=== PATIENT | male | born 1980 | race Two or more races ===

== ENCOUNTER 2023-10-17 17:48 | Emergency (ER) | payer OTHER ==
[~2023-10-17] VITALS: Ht 172.7 cm; Wt 100.0 kg
[2023-10-17 18:25] VITALS: PULSE 71; RESP 18; TEMP 98; O2SAT 98
[2023-10-17] MEDS: MORPHINE SULFATE 4 MG/ML SYR/VIAL IV ONE ×2 (18:37→21:03)
[2023-10-17] MEDS: SODIUM CHLORIDE 0.9% 1,000 ML IV ONE ×2 (18:37→20:26)
[2023-10-17] MEDS: KETOROLAC TROMETH 30 MG/ML 1ML VIAL IV ONE (18:38)
[2023-10-17] MEDS: ONDANSETRON HCL 4 MG/2 ML VIAL IV ONE (18:38)
[2023-10-17] MEDS ORDERED: IBUP-1456 PO (18:39)
[2023-10-17] MEDS ORDERED: ACET-1304 PO (18:39)
[2023-10-17] MEDS ORDERED: BAC09TP TOP (18:39)
[2023-10-17 19:30] VITALS: PULSE 71; RESP 18; O2SAT 98
[2023-10-17] MEDS: KETAMINE 50mg/ML 10ml Vial (500mg/10ml) IV ONE (19:55)
[2023-10-17 22:00] VITALS: BP 111/68; PULSE 75; RESP 17; O2SAT 95
== END 2023-10-17 22:45 | disposition home or self-care (01) ==
LOC: EDBD 17:48 → ER 17:48
DX: S43.004A Unspecified dislocation of right shoulder joint, initial encounter (principal); S80.212A Abrasion, left knee, initial encounter; S80.211A Abrasion, right knee, initial encounter; S83.91XA Sprain of unspecified site of right knee, initial encounter; Z79.1 Long term (current) use of non-steroidal anti-inflammatories (NSAID); V23.49XA Other motorcycle driver injured in collision with car, pick-up truck or van in traffic accident, initial encounter; Y93.89 Activity, other specified; Y92.89 Other specified places as the place of occurrence of the external cause; Y99.8 Other external cause status
CPT/HCPCS: 23650; 73020; 73562; 96361; 96374; 96375; 99152; 99285; J1885; J2270; J2405; J7030